=== PATIENT | male | born 1945 | race Two or more races ===

== ENCOUNTER 2023-09-17 07:56 | Outpatient (CLI) | payer OTHER | END 2023-09-17 08:04 | disposition home or self-care (01) | LOC: TOM 07:56 | PROVIDERS: ATTEND Internal Medicine Gastroenterology | DX: R10.9 Unspecified abdominal pain (principal); K57.30 Diverticulosis of large intestine without perforation or abscess without bleeding; D12.2 Benign neoplasm of ascending colon | CPT/HCPCS: 74177; Q9965 ==